=== PATIENT | male | born 1950 | race Hispanic/Latino ===

== ENCOUNTER 2018-02-05 11:01 | Emergency (ER) | payer SELFPAY | END 2018-02-05 12:38 | disposition home or self-care (01) | LOC: ERS 11:01 | DX: R04.0 Epistaxis (principal); E11.9 Type 2 diabetes mellitus without complications | CPT/HCPCS: 36416; 99284 ==

== ENCOUNTER 2022-06-18 15:01 | Inpatient (IN) | payer MEDICAID, SELFPAY ==
[2022-06-18 16:38] LABS: INR-International Normal Ratio 1.3; Prothrombin Time 16.3 sec (12.0-14.7)
[2022-06-18 16:39] LABS: PTT 40.1 sec (22.9-36.1)
[2022-06-18 16:42] LABS: ALT (SGPT) 27 U/L (8-55); AST (SGOT) 40 U/L (5-34); Albumin 2.3 g/dL (3.4-4.8); Alkaline Phosphatase 179 U/L (40-110); Anion Gap 13 mmol/L (10-20); BUN (Urea Nitrogen) 18 mg/dL (8.4-25.7); Bilirubin, Total 0.2 mg/dL (0.2-1.2); Calc. Creatinine Clearance 0 mL/min (70-130); Calcium 8.7 mg/dL (7.8-10.44); Carbon Dioxide 23 mmol/L (23-31); Chloride 93 mmol/L (98-107); Estimated GFR 69; Globulin 4.5 g/dL (2.4-3.5); Glucose 201 mg/dL (83-110); Potassium 3.7 mmol/L (3.5-5.1); Protein, Total 6.8 g/dL (5.8-8.1); Sodium 125 mmol/L (136-145)
[2022-06-18 17:14] LABS: Band 11 % (5-11); Hemoglobin 9.7 g/dL (14.0-18.0); Lymphocytes 14 % (21-51); MDiff Complete? YES; Mean Corpuscular HGB CONC 32.3 g/dL (32.0-36.0); Mean Corpuscular Hemoglobin 26.7 pg (27.0-31.0); Mean Corpuscular Volume 82.8 fl (78.0-98.0); Monocytes 10 % (0-10); Neutrophil 64 % (42-75); Platelet Count 425 10x3/uL (130-400); Platelet Morphology Comment Appears Increased; Polychromasia SLIGHT = 2-3 cells (100X) (0-2/hpf); RBC Distribution Width 13.5 % (11.5-14.5); Red Blood Cell (RBC) Count 3.61 mill/uL (4.70-6.10); Small Platelets SLIGHT; White Blood Cell (WBC) Count 3.6 10x3/uL (4.8-10.8)
[2022-06-18] MEDS ORDERED: Ondansetron PF 4 MG/2 ML Vial IVP PRN (18:27)
[2022-06-18] MEDS ORDERED: Ondansetron ODT 4 MG TAB PO PRN (18:27)
[2022-06-18] MEDS ORDERED: Calcium Carbonate 500 MG ChewTAB PO PRN (18:27)
[2022-06-18] MEDS ORDERED: HumaLOG 300 UNITS/3 ML VIAL SC PRN (18:27)
[2022-06-18] MEDS ORDERED: Dextrose 5% in Water 1,000 ML IV PRN (18:27)
[2022-06-18] MEDS ORDERED: Dextrose 50% Abboject 50 ML SYRINGE SLOW IVP PRN (18:27)
[2022-06-18] MEDS ORDERED: Senokot S 8.6-50 MG TAB PO PRN (18:27)
[2022-06-18] MEDS ORDERED: Lorazepam 2 MG/ML VIAL IM PRN (19:15)
[2022-06-18] MEDS ORDERED: Lorazepam 1 MG TAB PO PRN (19:15)
[2022-06-18 19:30] LABS: Lactic Acid 1.2 mmol/L (0.5-2.2)
[2022-06-18] MEDS ORDERED: Multivit, Therapeutic 1 TAB PO SCH (19:30)
[2022-06-18] MEDS ORDERED: Folic Acid 1 MG TAB PO SCH (19:30)
[2022-06-18 19:31] LABS: Magnesium 1.5 mg/dL (1.6-2.6); Phosphorus 3.4 mg/dL (2.3-4.7)
[2022-06-18] MEDS ORDERED: Magnesium 2 GM/50 ML(in water) 2 GM in Premix Bag 1 BAG IVPB SCH (21:15)
[2022-06-18] MEDS: Thiamine 100 MG TAB PO SCH (21:56)
[2022-06-18 22:53] VITALS: BMI 22.8
[2022-06-18 23:03] LABS: Iron 11 ug/dL (65-175); Iron Binding Capacity, Total 139 mcg/dL (261-462); Transferrin, Serum 111 mg/dL (163-344)
[2022-06-18 23:33] LABS: HBCM Index 0.06 S/CO (0-0.79); HBSAg Index 0.27 S/CO (0-0.99); Hep A IgM AB Non-Reactive (NonReactive); Hep A IgM S/CO 0.14 S/CO (0-0.79); Hep B Surf Ag Non-Reactive S/CO (NonReactive); Hep C IgG Ab Non-Reactive (NonReactive); Hep C Index 0.13 S/CO (0-0.79); Hepatitis B Core IgM Abs Non-Reactive (NonReactive)
[2022-06-19 05:52] LABS: Hemoglobin A1c 7.4 % (4.0-6.0)
[2022-06-19 05:53] LABS: ALT (SGPT) 28 U/L (8-55); AST (SGOT) 42 U/L (5-34); Albumin 2.5 g/dL (3.4-4.8); Alkaline Phosphatase 167 U/L (40-110); Anion Gap 13 mmol/L (10-20); BUN (Urea Nitrogen) 14 mg/dL (8.4-25.7); Bilirubin, Total 0.2 mg/dL (0.2-1.2); Calc. Creatinine Clearance 60 mL/min (70-130); Calcium 8.2 mg/dL (7.8-10.44); Carbon Dioxide 21 mmol/L (23-31); Chloride 97 mmol/L (98-107); Estimated GFR 91; Globulin 4.3 g/dL (2.4-3.5); Glucose 141 mg/dL (83-110); Potassium 3.7 mmol/L (3.5-5.1); Protein, Total 6.8 g/dL (5.8-8.1); Sodium 127 mmol/L (136-145)
[2022-06-19 06:08] LABS: Band 8 % (5-11); Hemoglobin 9.9 g/dL (14.0-18.0); Hypochromia SLIGHT = 6-15 cells (100X) (0-5/hpf); Lymphocytes 30 % (21-51); MDiff Complete? YES; Mean Corpuscular HGB CONC 32.7 g/dL (32.0-36.0); Mean Corpuscular Hemoglobin 27.1 pg (27.0-31.0); Mean Corpuscular Volume 82.8 fl (78.0-98.0); Mean Platelet Volume 6.1 fL (7.4-10.4); Monocytes 10 % (0-10); Neutrophil 52 % (42-75); Platelet Count 429 10x3/uL (130-400); Platelet Morphology Comment Appears Increased; RBC Distribution Width 13.5 % (11.5-14.5); Red Blood Cell (RBC) Count 3.64 mill/uL (4.70-6.10)
[2022-06-19] MEDS: Multivit, Therapeutic 1 TAB PO SCH (09:44)
[2022-06-19] MEDS: Folic Acid 1 MG TAB PO SCH (09:44)
[2022-06-19] MEDS ORDERED: Iopamidol 370 76% 100 ML VIAL ONE (11:02)
[2022-06-19] MEDS ORDERED: Lorazepam 1 MG TAB PO PRN (19:15)
[2022-06-19] MEDS: Thiamine 100 MG TAB PO SCH (21:20)
[2022-06-20 06:12] LABS: #Lymphocytes 1.1 thou/uL (1.20-3.40); #Monocytes 0.6 thou/uL (0.11-0.59); #Neutrophils 3.8 thou/uL (1.40-6.50); %Basophils 0.1 % (0.0-1.0); %Eosinophils 0.5 % (0.0-10.0); %Lymphocytes 20.2 % (21.0-51.0); %Monocytes 10.4 % (0.0-10.0); %Neutrophils 68.8 % (42.0-75.0); Hemoglobin 10.5 g/dL (14.0-18.0); Mean Corpuscular HGB CONC 32.3 g/dL (32.0-36.0); Mean Corpuscular Hemoglobin 27.5 pg (27.0-31.0); Mean Corpuscular Volume 85.3 fl (78.0-98.0); Platelet Count 430 10x3/uL (130-400); RBC Distribution Width 13.8 % (11.5-14.5); Red Blood Cell (RBC) Count 3.83 mill/uL (4.70-6.10); White Blood Cell (WBC) Count 5.5 10x3/uL (4.8-10.8)
[2022-06-20 06:31] LABS: ALT (SGPT) 26 U/L (8-55); AST (SGOT) 44 U/L (5-34); Albumin 2.3 g/dL (3.4-4.8); Alkaline Phosphatase 156 U/L (40-110); Anion Gap 14 mmol/L (10-20); BUN (Urea Nitrogen) 13 mg/dL (8.4-25.7); Bilirubin, Total 0.2 mg/dL (0.2-1.2); Calc. Creatinine Clearance 61 mL/min (70-130); Calcium 8.5 mg/dL (7.8-10.44); Carbon Dioxide 19 mmol/L (23-31); Chloride 99 mmol/L (98-107); Estimated GFR 91; Globulin 4.5 g/dL (2.4-3.5); Glucose 108 mg/dL (83-110); Potassium 3.7 mmol/L (3.5-5.1); Protein, Total 6.8 g/dL (5.8-8.1); Sodium 128 mmol/L (136-145)
[2022-06-20] MEDS: Multivit, Therapeutic 1 TAB PO SCH (11:03)
[2022-06-20] MEDS: Folic Acid 1 MG TAB PO SCH (11:03)
[2022-06-20] MEDS: HumaLOG 300 UNITS/3 ML VIAL SC PRN (16:53)
[2022-06-20] MEDS ORDERED: Lorazepam 1 MG TAB PO PRN (19:15)
[2022-06-20] MEDS: Senokot S 8.6-50 MG TAB PO PRN (21:59)
[2022-06-20] MEDS: Thiamine 100 MG TAB PO SCH (21:59)
[2022-06-20] MEDS ORDERED: Acetaminophen 325 MG TAB PO PRN ×2 (23:37→23:38)
[2022-06-21 06:07] LABS: #Lymphocytes 1.1 thou/uL (1.20-3.40); #Monocytes 0.4 thou/uL (0.11-0.59); %Basophils 0.3 % (0.0-1.0); %Eosinophils 0.3 % (0.0-10.0); %Lymphocytes 17.2 % (21.0-51.0); %Monocytes 5.4 % (0.0-10.0); %Neutrophils 76.9 % (42.0-75.0); Hemoglobin 10.7 g/dL (14.0-18.0); Mean Corpuscular HGB CONC 32.2 g/dL (32.0-36.0); Mean Corpuscular Volume 83.9 fl (78.0-98.0); Platelet Count 417 10x3/uL (130-400); RBC Distribution Width 13.6 % (11.5-14.5); Red Blood Cell (RBC) Count 3.94 mill/uL (4.70-6.10); White Blood Cell (WBC) Count 6.5 10x3/uL (4.8-10.8)
[2022-06-21] MEDS: HumaLOG 300 UNITS/3 ML VIAL SC PRN ×2 (06:10→17:09)
[2022-06-21 06:28] LABS: ALT (SGPT) 25 U/L (8-55); AST (SGOT) 38 U/L (5-34); Albumin 2.3 g/dL (3.4-4.8); Alkaline Phosphatase 148 U/L (40-110); Anion Gap 14 mmol/L (10-20); BUN (Urea Nitrogen) 15 mg/dL (8.4-25.7); Bilirubin, Total 0.3 mg/dL (0.2-1.2); Calc. Creatinine Clearance 61 mL/min (70-130); Calcium 8.7 mg/dL (7.8-10.44); Carbon Dioxide 20 mmol/L (23-31); Chloride 100 mmol/L (98-107); Estimated GFR 91; Globulin 4.8 g/dL (2.4-3.5); Glucose 165 mg/dL (83-110); Potassium 3.5 mmol/L (3.5-5.1); Protein, Total 7.1 g/dL (5.8-8.1); Sodium 130 mmol/L (136-145)
[2022-06-21] MEDS: Folic Acid 1 MG TAB PO SCH (08:09)
[2022-06-21] MEDS: Multivit, Therapeutic 1 TAB PO SCH (08:09)
[2022-06-21] MEDS ORDERED: Guaifenesin DM 100-10/5 ML UDCUP PO PRN (16:41)
[2022-06-21] MEDS ORDERED: Thiamine 100 MG TAB PO SCH (19:15)
[2022-06-21] MEDS ORDERED: Lorazepam 0.5 MG TAB PO PRN (19:15)
[2022-06-21] MEDS: Thiamine 100 MG TAB PO SCH (20:53)
[2022-06-22 06:02] LABS: #Eosinphils 0.1 thou/uL (0.0-0.7); #Lymphocytes 1.2 thou/uL (1.20-3.40); #Monocytes 0.4 thou/uL (0.11-0.59); #Neutrophils 7.1 thou/uL (1.40-6.50); %Basophils 0.2 % (0.0-1.0); %Eosinophils 0.8 % (0.0-10.0); %Lymphocytes 13.5 % (21.0-51.0); %Monocytes 4.9 % (0.0-10.0); %Neutrophils 80.6 % (42.0-75.0); Hemoglobin 11.2 g/dL (14.0-18.0); Mean Corpuscular HGB CONC 33.5 g/dL (32.0-36.0); Mean Corpuscular Volume 83.8 fl (78.0-98.0); Platelet Count 470 10x3/uL (130-400); RBC Distribution Width 13.7 % (11.5-14.5); Red Blood Cell (RBC) Count 3.99 mill/uL (4.70-6.10); White Blood Cell (WBC) Count 8.8 10x3/uL (4.8-10.8)
[2022-06-22 06:26] LABS: ALT (SGPT) 22 U/L (8-55); AST (SGOT) 31 U/L (5-34); Albumin 2.5 g/dL (3.4-4.8); Alkaline Phosphatase 135 U/L (40-110); Anion Gap 13 mmol/L (10-20); BUN (Urea Nitrogen) 13 mg/dL (8.4-25.7); Bilirubin, Total 0.3 mg/dL (0.2-1.2); Calc. Creatinine Clearance 60 mL/min (70-130); Calcium 8.9 mg/dL (7.8-10.44); Carbon Dioxide 22 mmol/L (23-31); Chloride 99 mmol/L (98-107); Estimated GFR 91; Globulin 4.7 g/dL (2.4-3.5); Glucose 160 mg/dL (83-110); Potassium 4.4 mmol/L (3.5-5.1); Protein, Total 7.2 g/dL (5.8-8.1); Sodium 130 mmol/L (136-145)
[2022-06-22] MEDS: Multivit, Therapeutic 1 TAB PO SCH (08:55)
[2022-06-22] MEDS: Folic Acid 1 MG TAB PO SCH (08:55)
[2022-06-22] MEDS: HumaLOG 300 UNITS/3 ML VIAL SC PRN ×2 (12:44→17:36)
[2022-06-22] MEDS: Senokot S 8.6-50 MG TAB PO PRN (13:40)
[2022-06-22] MEDS: Lactated Ringer's 500 ML IV SCH ×2 (17:38→19:32)
[2022-06-22] MEDS: Thiamine 100 MG TAB PO SCH (19:48)
[2022-06-23 04:57] LABS: #Eosinphils 0.1 thou/uL (0.0-0.7); #Lymphocytes 1.2 thou/uL (1.20-3.40); #Monocytes 0.5 thou/uL (0.11-0.59); #Neutrophils 5.5 thou/uL (1.40-6.50); %Basophils 0.1 % (0.0-1.0); %Eosinophils 0.8 % (0.0-10.0); %Lymphocytes 16.8 % (21.0-51.0); %Monocytes 6.4 % (0.0-10.0); Hemoglobin 10.4 g/dL (14.0-18.0); Mean Corpuscular HGB CONC 31.6 g/dL (32.0-36.0); Mean Corpuscular Hemoglobin 26.6 pg (27.0-31.0); Platelet Count 464 10x3/uL (130-400); RBC Distribution Width 13.6 % (11.5-14.5); White Blood Cell (WBC) Count 7.2 10x3/uL (4.8-10.8)
[2022-06-23 05:27] LABS: ALT (SGPT) 20 U/L (8-55); AST (SGOT) 30 U/L (5-34); Albumin 2.4 g/dL (3.4-4.8); Alkaline Phosphatase 149 U/L (40-110); Anion Gap 12 mmol/L (10-20); BUN (Urea Nitrogen) 14 mg/dL (8.4-25.7); Bilirubin, Total 0.3 mg/dL (0.2-1.2); Calc. Creatinine Clearance 65 mL/min (70-130); Calcium 8.6 mg/dL (7.8-10.44); Carbon Dioxide 21 mmol/L (23-31); Chloride 101 mmol/L (98-107); Estimated GFR 93; Globulin 4.5 g/dL (2.4-3.5); Glucose 167 mg/dL (83-110); Protein, Total 6.9 g/dL (5.8-8.1); Sodium 130 mmol/L (136-145)
[2022-06-23] MEDS: Multivit, Therapeutic 1 TAB PO SCH (08:44)
[2022-06-23] MEDS: Folic Acid 1 MG TAB PO SCH (08:44)
[2022-06-23] MEDS ORDERED: Acetaminophen 500 MG TAB PO PRN (16:56)
[2022-06-23] MEDS: Senokot S 8.6-50 MG TAB PO PRN (17:45)
[2022-06-23] MEDS: oxyCODONE 5 MG TAB PO PRN ×2 (17:45→21:47)
[2022-06-23] MEDS: Thiamine 100 MG TAB PO SCH (21:47)
[2022-06-24] MEDS: oxyCODONE 5 MG TAB PO PRN ×2 (05:49→12:38)
[2022-06-24 11:49] VITALS: TEMP 98.6
[2022-06-24] MEDS: Multivit, Therapeutic 1 TAB PO SCH (12:36)
[2022-06-24] MEDS: Folic Acid 1 MG TAB PO SCH (12:36)
[2022-06-24] MEDS ORDERED: Midazolam HCl 2 mg/2 ml Vial ONE (12:50)
[2022-06-24] MEDS ORDERED: FENTANYL 50 MCG/ML 1 ML VIAL ONE (12:50)
[2022-06-24] MEDS ORDERED: Sodium Bicarbonate 2.5 MEQ/5 ML VIAL ONE (12:50)
[2022-06-24] MEDS: Thiamine 100 MG TAB PO SCH (20:13)
[2022-06-24 20:28] VITALS: BP 150/77
[2022-06-25 15:16] LABS: Albumin-Ur 32.7 % (.); Alpha 1 - Ur 3.2 % (.); Alpha 2 - Ur 11.2 % (.); Beta-Ur 27.5 % (.); Gamma-Ur 25.4 % (.); M-Spike,% Not Observed % (Not Observed); Protein, Urine 121.5 mg/dL (Not Estab.)
[2022-06-25 15:16] LABS: A/G Ratio 0.4 (0.7-1.7); Alpha 1 0.2 g/dL (0.0-0.4); Alpha 2 1.2 g/dL (0.4-1.0); Beta 1.3 g/dL (0.7-1.3); Gamma 1.8 g/dL (0.4-1.8); Globulin, Total 4.5 g/dL (2.2-3.9); M-Spike Not Observed g/dL (Not Observed)
== END 2022-06-24 21:05 | disposition home or self-care (01) | DRG 674 ==
LOC: ERS 15:01 → ERHOLD 17:59 → MSONC 20:33
PROVIDERS: ADMIT Internal Medicine; ATTEND Hospitalist
PROC: 0QB23ZX Excision of Right Pelvic Bone, Percutaneous Approach, Diagnostic (ICD-10-PCS; principal; 2022-06-24)
DX: C64.9 Malignant neoplasm of unspecified kidney, except renal pelvis (principal); C78.00 Secondary malignant neoplasm of unspecified lung; C79.51 Secondary malignant neoplasm of bone; E87.1 Hypo-osmolality and hyponatremia; N17.9 Acute kidney failure, unspecified; E78.5 Hyperlipidemia, unspecified; R74.01 Elevation of levels of liver transaminase levels; N28.89 Other specified disorders of kidney and ureter; E88.09 Other disorders of plasma-protein metabolism, not elsewhere classified; R59.0 Localized enlarged lymph nodes; N18.1 Chronic kidney disease, stage 1; I12.9 Hypertensive chronic kidney disease with stage 1 through stage 4 chronic kidney disease, or unspecified chronic kidney disease; D63.1 Anemia in chronic kidney disease; R53.1 Weakness; E11.22 Type 2 diabetes mellitus with diabetic chronic kidney disease; Z79.84 Long term (current) use of oral hypoglycemic drugs; Z79.899 Other long term (current) drug therapy
CPT/HCPCS: 20225; 36415; 36416; 71045; 74178; 76705; 77012; 80053; 80074; 80307; 82140; 82728; 83036; 83540; 83550; 83605; 83735; 83880; 84100; 84155; 84156; 84165; 84166; 84443; 84466; 84484; 85025; 85610; 85730; 88307; 88311; 88333; 88341; 88342; 93005; 96360; J1815; J2250; J3010; J3475; J7120; Q9967